=== PATIENT | male | born 1975 | race Caucasian/White ===

== ENCOUNTER 2018-12-22 14:37 | Inpatient (IN) ==
[2018-12-22] MEDS ORDERED: ALUM/MAG/SIMETH/LIDO VISC 1:1 30 ML BOTTLE PO STA (14:59)
[2018-12-22] MEDS ORDERED: NITROGLYCERIN 2% OINT 1 INCH/GM PACK TOP STA (14:59)
[2018-12-22] MEDS ORDERED: MORPHINE 4 MG/1 ML VIAL IV PRN (14:59)
[2018-12-22] MEDS ORDERED: ASPIRIN 325 MG TABLET PO STA (14:59)
[2018-12-22] MEDS ORDERED: ONDANSETRON 4 MG/2 ML VIAL IV STA (14:59)
[2018-12-22 15:52] LABS: Basophils % 0.1 % (0.0-0.8); Hematocrit 44.7 VOL% (42.0-52.0); Hemoglobin 14.9 GM/DL (14.0-18.0); Immature Granulocytes % 0.4 %; Immature Granulocytes Absolute 0.03 #; Lymphocytes # 0.6 10*3/uL (1.4-4.0); Lymphocytes % 7.6 % (21.2-54.2); Mean Corpuscular HGB Conc 33.3 GM/DL (32-36); Mean Corpuscular Volume 90.7 FL (87-102); Monocytes % 1.5 % (1.7-12.7); Neutrophils % 90.4 % (38.7-73.9); Platelet Count 189 T/CUMM (130-400); Red Blood Count 4.93 MC/CUMM (3.8-5.5); Red Cell Distribution Width 11.9 % (9.3-17.3); White Blood Count 8.2 T/CUMM (4-12)
[2018-12-22 16:02] LABS: INR 0.9; PT Patient Result 9.9 SECS; Partial Thromboplastin Time 23.6 SECS (0-40)
[2018-12-22 16:24] LABS: Alanine Aminotransferase 75 U/L (16-61); Albumin 3.8 G/DL (3.4-5.0); Alkaline Phosphatase 96 U/L (45-117); Aspartate Amino Transferase 40 U/L (0-37); Blood Urea Nitrogen 20 MG/DL (7-18); Calcium 9.2 MG/DL (8.5-10.1); Glucose 167 MG/DL (74-106); Osmolality,Calculated 279.8 MOS/KG (273-304); Total Protein 7.8 G/DL (6.4-8.3); Troponin I < 0.015 NG/ML (0.00-0.045)
[2018-12-22 16:49] LABS: Apearance,Urine CLEAR (Clear); Bilirubin,Urine Negative (Negative); Blood, Urine Negative (Negative); Glucose,Urine (UA) Negative (Negative); Ketones,Urine 5 mg/dL (Negative); Mucus,Urine Occasional /LPF (Occasional); Nitrite,Urine Negative (Negative); Protein,Urine Negative; RBC,Urine 1 /HPF (0-4); Urine Color Yellow (Yellow); Urine Specific Gravity 1.012 (1.001-1.035); Urine Urobilinogen < 2.0 EU/DL (0.2-1.0); WBC,Urine 1 /HPF (0-6)
[2018-12-22] MEDS ORDERED: GLUCAGON 1 MG VIAL IM PRN (16:52)
[2018-12-22] MEDS ORDERED: DEXTROSE 10% 25 GM/250 ML BAG IV PRN (16:52)
[2018-12-22] MEDS ORDERED: ACETAMINOPHEN 325 MG TABLET PO PRN (16:52)
[2018-12-22] MEDS ORDERED: FUROSEMIDE 40 MG TABLET PO PRN (16:57)
[2018-12-22] MEDS ORDERED: POTASSIUM CHLORIDE 10 MEQ TABLET PO PRN (16:57)
[2018-12-22] MEDS ORDERED: MELOXICAM 7.5 MG TABLET PO PRN (16:57)
[2018-12-22 17:00] LABS: Barbiturates Screen,Urine Negative (Negative); Benzodiazepines Screen,Urine Negative (Negative); Cannabinoid Screen,Urine Negative (Negative); Opiate Screen,Urine Positive (Negative); Phencyclidine Screen,Urine Negative (Negative)
[2018-12-22] MEDS: ENOXAPARIN 40 MG/0.4 ML SYRINGE SUBCUT SCH (18:50)
[2018-12-22] MEDS: traZODone 50 MG TABLET PO SCH (21:46)
[2018-12-22] MEDS: MONTELUKAST 10 MG TABLET PO SCH (21:46)
[2018-12-22] MEDS: INSULIN REGULAR 100 UNIT/ML SUBCUT SCH (21:47)
[2018-12-23 05:49] LABS: Basophils % 0.2 % (0.0-0.8); Eosinophils % 0.1 % (0.00-10.9); Hematocrit 40.5 VOL% (42.0-52.0); Hemoglobin 13.2 GM/DL (14.0-18.0); Immature Granulocytes % 0.5 %; Immature Granulocytes Absolute 0.05 #; Lymphocytes % 18.6 % (21.2-54.2); Mean Corpuscular HGB Conc 32.6 GM/DL (32-36); Mean Corpuscular Volume 92.7 FL (87-102); Monocytes % 9.3 % (1.7-12.7); Neutrophils % 71.3 % (38.7-73.9); Platelet Count 181 T/CUMM (130-400); Red Blood Count 4.37 MC/CUMM (3.8-5.5); Red Cell Distribution Width 11.9 % (9.3-17.3); White Blood Count 10.8 T/CUMM (4-12)
[2018-12-23 06:11] LABS: Calcium 9.4 MG/DL (8.5-10.1); Osmolality,Calculated 282.5 MOS/KG (273-304); Risk Ratio 4.02; VLDL CHOLESTEROL 15.6 MG/DL
[2018-12-23] MEDS ORDERED: LOSARTAN 50 MG TABLET PO SCH (09:00)
[2018-12-23] MEDS: INSULIN REGULAR 100 UNIT/ML SUBCUT SCH ×4 (09:45→21:36)
[2018-12-23] MEDS: ASPIRIN EC 81 MG TABLET PO SCH (09:47)
[2018-12-23] MEDS: PANTOPRAZOLE 40 MG TABLET PO SCH (09:47)
[2018-12-23] MEDS: ALLOPURINOL 100 MG TABLET PO SCH (09:48)
[2018-12-23] MEDS: Armodafinil [Nuvigil] 250 MG PO SCH (10:19)
[2018-12-23 15:41] LABS: Hepatitis B Core IgM Quant 0.06 Index; Hepatitis B Surface Ag Quant 0.11 Index; Hepatitis B Surface Ag Result Negative (Negative); Hepatitis C Virus Ab Quant < 0.02 Index; Hepatitis C Virus Ab Result Negative (Negative)
[2018-12-23] MEDS ORDERED: BISACODYL 5 MG TABLET PO ONE (15:49)
[2018-12-23] MEDS: ENOXAPARIN 40 MG/0.4 ML SYRINGE SUBCUT SCH (16:44)
[2018-12-23] MEDS: traZODone 50 MG TABLET PO SCH (21:35)
[2018-12-23] MEDS: MONTELUKAST 10 MG TABLET PO SCH (21:36)
[2018-12-24 06:06] LABS: Basophils % 0.2 % (0.0-0.8); Eosinophils # 0.1 10*3/uL (0.0-0.87); Eosinophils % 0.7 % (0.00-10.9); Hematocrit 39.5 VOL% (42.0-52.0); Hemoglobin 12.8 GM/DL (14.0-18.0); Immature Granulocytes % 0.5 %; Immature Granulocytes Absolute 0.06 #; Lymphocytes % 24.6 % (21.2-54.2); Mean Corpuscular HGB Conc 32.4 GM/DL (32-36); Mean Corpuscular Volume 92.7 FL (87-102); Mean Platelet Volume 9.9 FL (9.6-12.0); Monocytes % 9.2 % (1.7-12.7); Neutrophils % 64.8 % (38.7-73.9); Platelet Count 162 T/CUMM (130-400); Red Blood Count 4.26 MC/CUMM (3.8-5.5); Red Cell Distribution Width 11.9 % (9.3-17.3); White Blood Count 12.1 T/CUMM (4-12)
[2018-12-24 06:25] LABS: Osmolality,Calculated 284.3 MOS/KG (273-304)
[2018-12-24] MEDS: INSULIN REGULAR 100 UNIT/ML SUBCUT SCH ×4 (08:10→22:04)
[2018-12-24] MEDS: amLODIPine 5 MG TABLET PO SCH (09:29)
[2018-12-24] MEDS: ASPIRIN EC 81 MG TABLET PO SCH (09:29)
[2018-12-24] MEDS: POTASSIUM CHLORIDE 20 MEQ TABLET PO SCH (09:29)
[2018-12-24] MEDS: PANTOPRAZOLE 40 MG TABLET PO SCH (09:29)
[2018-12-24] MEDS: ALLOPURINOL 100 MG TABLET PO SCH (09:29)
[2018-12-24] MEDS: LOSARTAN 50 MG TABLET PO SCH (09:29)
[2018-12-24] MEDS: Armodafinil [Nuvigil] 250 MG PO SCH (09:33)
[2018-12-24] MEDS: OXYBUTYNIN 5 MG TABLET PO SCH ×3 (09:33→21:01)
[2018-12-24] MEDS ORDERED: ONDANSETRON 4 MG/2 ML VIAL IV PRN (11:32)
[2018-12-24] MEDS: ENOXAPARIN 40 MG/0.4 ML SYRINGE SUBCUT SCH (16:32)
[2018-12-24] MEDS: traZODone 50 MG TABLET PO SCH (21:00)
[2018-12-24] MEDS: MONTELUKAST 10 MG TABLET PO SCH (21:01)
[2018-12-25 05:15] LABS: Basophils % 0.2 % (0.0-0.8); Eosinophils % 0.3 % (0.00-10.9); Hematocrit 40.5 VOL% (42.0-52.0); Hemoglobin 13.1 GM/DL (14.0-18.0); Immature Granulocytes % 0.5 %; Immature Granulocytes Absolute 0.06 #; Lymphocytes # 1.7 10*3/uL (1.4-4.0); Lymphocytes % 13.4 % (21.2-54.2); Mean Corpuscular HGB Conc 32.3 GM/DL (32-36); Mean Corpuscular Volume 92.9 FL (87-102); Monocytes % 12.4 % (1.7-12.7); Neutrophils % 73.2 % (38.7-73.9); Platelet Count 155 T/CUMM (130-400); Red Blood Count 4.36 MC/CUMM (3.8-5.5); Red Cell Distribution Width 11.8 % (9.3-17.3); White Blood Count 12.9 T/CUMM (4-12)
[2018-12-25 05:49] LABS: Calcium 8.3 MG/DL (8.5-10.1); Osmolality,Calculated 280.4 MOS/KG (273-304)
[2018-12-25] MEDS: INSULIN REGULAR 100 UNIT/ML SUBCUT SCH ×4 (07:41→21:19)
[2018-12-25] MEDS: LOSARTAN 50 MG TABLET PO SCH (08:57)
[2018-12-25] MEDS: POTASSIUM CHLORIDE 20 MEQ TABLET PO SCH (08:57)
[2018-12-25] MEDS: OXYBUTYNIN 5 MG TABLET PO SCH ×3 (08:58→21:11)
[2018-12-25] MEDS: ALLOPURINOL 100 MG TABLET PO SCH (08:58)
[2018-12-25] MEDS: ASPIRIN EC 81 MG TABLET PO SCH (08:58)
[2018-12-25] MEDS: PANTOPRAZOLE 40 MG TABLET PO SCH (08:58)
[2018-12-25] MEDS: amLODIPine 5 MG TABLET PO SCH (08:58)
[2018-12-25] MEDS: Armodafinil [Nuvigil] 250 MG PO SCH (09:00)
[2018-12-25 09:57] LABS: Apearance,Urine Slightly Hazy (Clear); Bilirubin,Urine Negative (Negative); Blood, Urine Large mg/dL (Negative); Glucose,Urine (UA) Negative (Negative); Ketones,Urine 5 mg/dL (Negative); Mucus,Urine Occasional /LPF (Occasional); Nitrite,Urine Negative (Negative); Protein,Urine 100 MG/DL; RBC,Urine 676 /HPF (0-4); Squamous Epithelial Cell,Urine Occasional /HPF (0-10); Urine Color Yellow (Yellow); Urine Specific Gravity 1.016 (1.001-1.035); WBC,Urine 154 /HPF (0-6)
[2018-12-25] MEDS: GABAPENTIN 100 MG CAPSULE PO SCH ×2 (16:44→21:11)
[2018-12-25] MEDS: ENOXAPARIN 40 MG/0.4 ML SYRINGE SUBCUT SCH (16:45)
[2018-12-25] MEDS: traZODone 50 MG TABLET PO SCH (21:11)
[2018-12-25] MEDS: MONTELUKAST 10 MG TABLET PO SCH (21:11)
[2018-12-25] MEDS: BACLOFEN 10 MG TABLET PO PRN (21:17)
[2018-12-26 06:09] LABS: Basophils % 0.2 % (0.0-0.8); Eosinophils # 0.1 10*3/uL (0.0-0.87); Hematocrit 40.7 VOL% (42.0-52.0); Hemoglobin 13.2 GM/DL (14.0-18.0); Immature Granulocytes % 0.5 %; Immature Granulocytes Absolute 0.06 #; Lymphocytes # 1.4 10*3/uL (1.4-4.0); Lymphocytes % 11.5 % (21.2-54.2); Mean Corpuscular HGB Conc 32.4 GM/DL (32-36); Mean Corpuscular Volume 93.1 FL (87-102); Mean Platelet Volume 9.8 FL (9.6-12.0); Monocytes % 10.4 % (1.7-12.7); Neutrophils % 76.4 % (38.7-73.9); Platelet Count 157 T/CUMM (130-400); Red Blood Count 4.37 MC/CUMM (3.8-5.5); Red Cell Distribution Width 11.9 % (9.3-17.3); White Blood Count 11.7 T/CUMM (4-12)
[2018-12-26 06:37] LABS: Calcium 8.8 MG/DL (8.5-10.1); Osmolality,Calculated 276.5 MOS/KG (273-304)
[2018-12-26 06:46] LABS: Bilirubin,Total 1.5 MG/DL (0.2-1.0); Osmolality,Calculated 277.5 MOS/KG (273-304); Total Protein 6.5 G/DL (6.4-8.3)
[2018-12-26 06:55] LABS: Folate 8.4 NG/ML (5.4-24.0)
[2018-12-26] MEDS: INSULIN REGULAR 100 UNIT/ML SUBCUT SCH ×4 (08:17→21:38)
[2018-12-26] MEDS: ALLOPURINOL 100 MG TABLET PO SCH (08:34)
[2018-12-26] MEDS: POTASSIUM CHLORIDE 20 MEQ TABLET PO SCH (08:34)
[2018-12-26] MEDS: ASPIRIN EC 81 MG TABLET PO SCH (08:35)
[2018-12-26] MEDS: OXYBUTYNIN 5 MG TABLET PO SCH ×3 (08:35→20:59)
[2018-12-26] MEDS: LOSARTAN 50 MG TABLET PO SCH (08:35)
[2018-12-26] MEDS: amLODIPine 5 MG TABLET PO SCH (08:35)
[2018-12-26] MEDS: Armodafinil [Nuvigil] 250 MG PO SCH (08:35)
[2018-12-26] MEDS: PANTOPRAZOLE 40 MG TABLET PO SCH (08:35)
[2018-12-26] MEDS: GABAPENTIN 100 MG CAPSULE PO SCH ×3 (08:35→20:59)
[2018-12-26] MEDS: amLODIPine 10 MG TABLET PO SCH (11:09)
[2018-12-26] MEDS: cefTRIAXone 1,000 MG in SYRINGE 1 EACH IV SCH ×2 (11:10→21:01)
[2018-12-26] MEDS ORDERED: DOCUSATE SODIUM 100 MG CAPSULE PO PRN (15:19)
[2018-12-26] MEDS ORDERED: LACTULOSE 20 GM/30 ML UDCUP PO PRN (15:19)
[2018-12-26] MEDS: ENOXAPARIN 40 MG/0.4 ML SYRINGE SUBCUT SCH (16:33)
[2018-12-26] MEDS: MONTELUKAST 10 MG TABLET PO SCH (20:59)
[2018-12-26] MEDS: BACLOFEN 10 MG TABLET PO PRN (20:59)
[2018-12-26] MEDS: traZODone 50 MG TABLET PO SCH (20:59)
[2018-12-27 05:00] LABS: Basophils % 0.3 % (0.0-0.8); Eosinophils # 0.3 10*3/uL (0.0-0.87); Eosinophils % 4.6 % (0.00-10.9); Hematocrit 39.4 VOL% (42.0-52.0); Hemoglobin 12.6 GM/DL (14.0-18.0); Immature Granulocytes % 0.4 %; Immature Granulocytes Absolute 0.03 #; Lymphocytes # 1.8 10*3/uL (1.4-4.0); Lymphocytes % 25.9 % (21.2-54.2); Mean Corpuscular Volume 93.1 FL (87-102); Mean Platelet Volume 10.3 FL (9.6-12.0); Monocytes % 15.5 % (1.7-12.7); Neutrophils % 53.3 % (38.7-73.9); Platelet Count 172 T/CUMM (130-400); Red Blood Count 4.23 MC/CUMM (3.8-5.5); Red Cell Distribution Width 11.7 % (9.3-17.3)
[2018-12-27 05:20] LABS: Calcium 8.8 MG/DL (8.5-10.1); Osmolality,Calculated 284.1 MOS/KG (273-304)
[2018-12-27] MEDS: Armodafinil [Nuvigil] 250 MG PO SCH (08:04)
[2018-12-27] MEDS: INSULIN REGULAR 100 UNIT/ML SUBCUT SCH ×2 (08:04→12:13)
[2018-12-27 08:06] VITALS: BP 130/77
[2018-12-27] MEDS: LOSARTAN 50 MG TABLET PO SCH (08:11)
[2018-12-27] MEDS: ALLOPURINOL 100 MG TABLET PO SCH (08:11)
[2018-12-27] MEDS: POTASSIUM CHLORIDE 20 MEQ TABLET PO SCH (08:11)
[2018-12-27] MEDS: ASPIRIN EC 81 MG TABLET PO SCH (08:12)
[2018-12-27] MEDS: GABAPENTIN 100 MG CAPSULE PO SCH ×2 (08:12→14:51)
[2018-12-27] MEDS: OXYBUTYNIN 5 MG TABLET PO SCH (08:12)
[2018-12-27] MEDS: cefTRIAXone 1,000 MG in SYRINGE 1 EACH IV SCH ×2 (08:12→09:18)
[2018-12-27] MEDS: PANTOPRAZOLE 40 MG TABLET PO SCH (08:12)
[2018-12-27] MEDS: amLODIPine 10 MG TABLET PO SCH (08:12)
[2018-12-27] MEDS ORDERED: SERTRALINE 25 MG TABLET PO SCH (11:00)
[2018-12-28] MEDS ORDERED: cefTRIAXone 2,000 MG in SYRINGE 1 EACH IV SCH (09:00)
[2018-12-29 13:56] LABS: Urine Volume 2000 mL
[2018-12-29 20:11] LABS: Normetanephrine, U 396 mcg/24 h; Total Metanephrines, U 538 mcg/24 h; Urine Volume 2000 mL
[2018-12-30 12:01] LABS: CATU Epinephrine Frac 4.6 mcg/24 h (<21)
== END 2018-12-27 15:10 | disposition home or self-care (01) | DRG 305 ==
LOC: N.ED 14:37 → N.EDINP 14:37 → SUATTDRO 15:43 → N.5E 17:13 → SUATTDRO 12-24 15:00
PROVIDERS: ATTEND Family Medicine